=== PATIENT | female | born 1975 | race Caucasian/White ===

== ENCOUNTER → 2017-11-02 06:05 | Day surgery (SDC) | payer BC ==
[~2017-11-02 06:05] MED LIST: Acetaminophen IV 1GM/100ML * 100 ML ONE; Acetaminophen TAB* 325 MG PO ONE; Buffered Lidocaine 0.9% SYRIN* 5 ML/SYR SYRINGE INTRADERM ONE; Bupivacaine 0.25% SDV* 30 ML ONE; Dexamethasone IV* 4 MG/ML 1 ML (4 MG) ONE; Famotidine IV* 10 MG/ML 2 ML (20 mg) IV ONE; Famotidine IV* 10 MG/ML 2 ML (20 mg) ONE; HYDROmorphone INJ* 1 MG/ML CARPUJECT SYRINGE IV PRN; Ketorolac INJ* 30 MG/ML 1 ML VIAL ONE; Lidocaine 2% PF * 5 ML VIAL ONE; Metoclopramide IV* 5 MG/ML 2 ML VIAL IV SLOW PU ONE; Metoclopramide IV* 5 MG/ML 2 ML VIAL ONE; Midazolam* 1 MG/ML 2 ML VIAL (2 MG) ONE; Naloxone* 0.4 MG/ML 1 ML VIAL IV PRN; Ondansetron INJ* 2 MG/ML VIAL IV PRN; Ondansetron INJ* 2 MG/ML VIAL ONE; PROCHLORPERAZINE INJ 5 MG/ML 2 ML VIAL IV PRN; Propofol* 10 MG/ML 20 ML BTL IV PUSH ONE; Rocuronium* 10 MG/ML VIAL ONE; Sugammadex * 200 MG/2 ML VIAL IV PUSH ONE; ceFAZolin 2 GM PREMIX (*) 2 GM/50 ML BAG IVPB ONE; ceFAZolin 2 GM in NS 0.9% 100 ml IVPB ONE; diPHENhydraMINE IV* 50 MG/ML 1 ml VIAL (BENADRYL) IV PRN; fentaNYL* 50 MCG/ML 2 ML VIAL (100 MCG VIAL) IV PRN; fentaNYL* 50 MCG/ML 2 ML VIAL (100 MCG VIAL) ONE; oxyCODONE TAB* 5 MG TAB PO PRN; oxyCODONE/Acetamin 5/325 MG* TAB PO PRN
[2017-11-02 09:12] VITALS: BP 134/83
--- NOTE | 2017-11-02 15:01 | OP ---
CC: Dave Nichole MD; Dr. Zayra Cabrera OPERATIVE REPORT: DATE OF OPERATION: 11/02/17 DATE OF : 75 SURGEON: Dave Nichole MD OR SCRUB TECH: LOY Gómez ANESTHESIOLOGIST: Dr. Burns. ANESTHESIA: General anesthetic, local infiltration. PRE-OP DIAGNOSIS: Biliary colic. POST-OP DIAGNOSIS: Biliary colic. OPERATIVE PROCEDURE: Laparoscopic cholecystectomy. DESCRIPTION OF PROCEDURE: The patient was supine on the operative table. After adequate general ane sthetic, compression stockings, Catie Hugger warmer, and intravenous antibiotics, the abdomen was prep ped with antiseptic, draped in a sterile fashion. Local infiltrative anesthesia was carried out at a ll of the cannula sites. Right upper quadrant 5-mm incision was created and 5-mm port placed under d irect vision. Insufflation was carried out with carbon dioxide. Inspection revealed no evidence of underlying injury. Additional cannulae, 5-mm supraumbilical and right anterior axillary line as well as 12-mm subxiphoid were placed through small stab wounds under direct vision. Gallbladder was tente d up and areolar tissue was taken down at the cystic duct and cystic artery, which were readily skele tonized and identified. These were then clipped and divided. Gallbladder was taken off the liver bed with electrocautery. Hemostasis was good. The gallbladder was removed through the subxiphoid port w ithout any spillage. The operative field was again examined and hemostasis was good. The pneumoperi toneum was allowed to escape. The cannulae were removed and skin closed with 5-0 Vicryl followed by Steri-Strips. She tolerated the procedure well, was awakened and brought to Recovery in good conditi on. No complications. No drains. Pathologic specimen was gallbladder. Sponge and instrument count s correct. Estimated blood loss 20 mL. [id number]/[facility] #: [id number]
== END | disposition home or self-care (01) ==
LOC: OR 06:05
PROVIDERS: ATTEND Surgery
DX: K80.10 Calculus of gallbladder with chronic cholecystitis without obstruction (principal)
CPT/HCPCS: 88304; J0690; J1100; J1885; J2250; J2405; J2704; J2765; J3010

== ENCOUNTER 2018-05-31 10:16 | Day surgery (SDC) | payer BC ==
--- NOTE | 2018-05-31 10:50 | ED ---
Abdominal Pain/Female - HPI Summary HPI Summary: The pt is a 43 y/o female presenting to [facility] c/o RLQ pain since 2100 yesterday night worsened today morning. She was seen at [facility] with a dx of appendicitis. The abd pain rated 4/10 in severity is described as aching. She denies nausea. - History of Current Complaint Chief Complaint: EDAbdPain Stated Complaint: ABD PAIN/SENT BY [place] Time Seen by Provider: 05/31/18 10:24 Hx Obtained From: Patient Onset/Duration: Gradual Onset, Still Present, Worse Since - Today morning Timing: Constant Severity Currently: Moderate Pain Intensity: 6 Pain Scale Used: 0-10 Numeric Location: Discrete At: RLQ Allergies/Adverse Reactions: Allergies Allergy/AdvReac Type Severity Reaction Status Date / Time bee pollen Allergy Anaphylatic Verified 10/31/17 09:57 Shock Sulfa (Sulfonamide Allergy Swelling Verified 10/31/17 09:57 Antibiotics) Of Face,Lips,& Throat PMH/Surg Hx/FS Hx/Imm Hx Previously Healthy: No GI History: Reports: Other GI Disorders - chronic cholecystitis History: Reports: Other Problems/Disorders - occas UTI's in past Sensory History: Reports: Hx Contacts or Glasses - both, will wear glasses DOS Opthamlomology History: Reports: Hx Contacts or Glasses - both, will wear glasses DOS - Cancer History Cancer Type, Location and Year: None reported - Surgical History Surgery Procedure, Year, and Place: Tubal ligation 2008 [facility] Anesthesia Reactions: No Infectious Disease History: No Infectious Disease History: Denies: Traveled Outside the [place] in Last 30 Days - Family History Known Family History: Positive: Cardiac Disease, Hypertension, Diabetes - Social History Occupation: Employed Full-time Lives: With Family Alcohol Use: Weekly Alcohol Amount: reports 1-2 beers weekly Substance Use Type: Reports: None Smoking Status (MU): Never Smoked Tobacco Review of Systems Negative: Fever Positive: Abdominal Pain - RLQ. Negative: Nausea All Other Systems Reviewed And Are Negative: Yes Physical Exam - Summary Physical Exam Summary: Appearance: The patient is well-nourished in no acute distress and in no acute pain. Skin: The skin is warm and dry and skin color reflects adequate perfusion. HEENT: The head is normocephalic and atraumatic. The pupils are equal and reactive. The conjunctivae are clear and without drainage. Nares are patent and without drainage. Mouth reveals moist mucous membranes and the throat is without erythema and exudate. The external ears are intact. The ear canals are patent and without drainage. The tympanic membranes are intact. Neck: The neck is supple with full range of motion and non-tender. There are no carotid bruits. There is no neck vein distension. Respiratory: Chest is non-tender. Lungs are clear to auscultation and breath sounds are symmetrical and equal. Cardiovascular: Heart is regular rate and rhythm. There is no murmur or rub auscultated. There is no peripheral edema and pulses are symmetrical and equal. Abdomen: The abdomen is soft and tender to palpation in the RLQ There are normal bowel sounds heard in all four quadrants and there is no organomegaly palpated. Musculoskeletal: There is no back tenderness noted. Extremities are non-tender with full range of motion. There is good capillary refill. There is no peripheral edema or calf tenderness elicited. Neurological: Patient is alert and oriented to person, place and time. The patient has symmetrical motor strength in all four extremities. Cranial nerves are grossly intact. Deep tendon reflexes are symmetrical and equal in all four extremities. Psychiatric: The patient has an appropriate affect and does not exhibit any anxiety or depression. Triage Information Reviewed: Yes Vital Signs On Initial Exam: Initial Vitals Temp Pulse Resp BP Pulse Ox 98.2 F 90 16 146/80 98 05/31/18 10:17 05/31/18 10:17 05/31/18 10:17 05/31/18 10:17 05/31/18 10:17 Vital Signs Reviewed: Yes Diagnostics - Vital Signs Vital Signs Temp Pulse Resp BP Pulse Ox 05/31/18 10:17 98.2 F 90 16 146/80 98 - Laboratory Lab Statement: Any lab studies that have been ordered have been reviewed, and results considered in the medical decision making process. Abdominal Pain Fem Course/Dx - Course Course Of Treatment: Ms. Andrade was transferred over from [facility] with a diagnosis of acute appendicitis. She was stable on arrival, nontoxic in appearance and afebrile. Dr. French was contacted and came to the emergency department to evaluate her and admit her to the OR. - Diagnoses Provider Diagnoses: Acute appendicitis - Provider Notifications Discussed Care Of Patient With: Luis Carlos Obrien - Hand Sewer Instructed by Provider To: Will See In ED - 10:59- Dr. Obrien saw the pt in the ED Discharge - Sign-Out/Discharge Documenting (check all that apply): Patient Departure - Admit - Discharge Plan Condition: Stable Disposition: ADMITTED TO [facility] - Billing Disposition and Condition Condition: STABLE Disposition: Admitted to [facility] - Attestation Statements Document Initiated by Angelaibe: Yes Documenting Scribe: Alyx Russell Provider For Whom Radha is Documenting (Include Credential): Dr. Percy Roach MD Scribe Attestation: Alyx Cordero , scribed for Dr. Percy Roach MD on 05/31/18 at 1604. Scribe Documentation Reviewed: Yes Provider Attestation: The documentation as recorded by the Alyx nelson accurately reflects the service I personally performed and the decisions made by me, Dr. Percy Roach MD
[2018-05-31] MEDS ORDERED: Morphine INJ* 4 MG/ML 1 ML SYRINGE (NEW SYRINGE VERSION) IV PRN (11:09)
[2018-05-31] MEDS ORDERED: Ondansetron INJ* 2 MG/ML VIAL IV PRN (11:10)
[2018-05-31] MEDS ORDERED: NS 0.9% 1000 ML* 1,000 ML IV SCH (11:15)
[2018-05-31] MEDS ORDERED: Morphine INJ* 4 MG/ML 1 ML SYRINGE (NEW SYRINGE VERSION) ONE (11:21)
[2018-05-31] MEDS ORDERED: Bupivacaine 0.25% W/EPI* 10 ML SDV ONE ×2 (12:06→12:09)
[2018-05-31] MEDS ORDERED: Rocuronium* 10 MG/ML VIAL ONE (12:31)
[2018-05-31] MEDS ORDERED: fentaNYL* 50 MCG/ML 2 ML VIAL (100 MCG VIAL) ONE ×2 (12:31→13:21)
[2018-05-31] MEDS ORDERED: Midazolam* 1 MG/ML 5 ML VIAL (5 MG) ONE (12:31)
--- NOTE | 2018-05-31 12:44 | HP ---
CC: [facility]; Zayra Cabrera DO HISTORY AND PHYSICAL: DATE OF ADMISSION: 05/31/18 PRIMARY CARE PROVIDER: Zayra Cabrera DO at [facility]. CHIEF COMPLAINT: Right lower quadrant abdominal pain. HISTORY OF PRESENT ILLNESS: Ms. Emilee Andrade is a 43-year-old woman who is healthy otherwise and d eveloped some generalized periumbilical discomfort last night after eating pizza. This was associate d with some nausea and vomiting and loose bowel movements. The pain became quite persistent and she had difficulty sleeping and subsequently became localized more in the right lower quadrant of her abd omen. She presented to the emergency room out at [facility]. There she was noted to have a white bl ood cell count elevation of almost 20,000, but the remainder of her laboratory workup was unremarkabl e. She did undergo a CT scan of the abdomen and pelvis. I did review these images. This was done withou t oral contrast; however, there appears to be findings consistent with acute appendicitis with a dila liz thick walled appendix and periappendiceal inflammation. There is no evidence of extraluminal air , fluid or signs of perforation. There were no other acute findings. She was transferred here to [facility] for further surgical care. PAST MEDICAL HISTORY: Unremarkable. PAST SURGICAL HISTORY: 1. Laparoscopic cholecystectomy. 2. Tubal ligation, laparoscopic. MEDICATIONS: Include: 1. Ibuprofen. 2. Calcium carbonate/TUMS. ALLERGIES: BEE POLLEN and SULFA. SOCIAL HISTORY: She does not smoke. She drinks alcohol on a social basis. She is with [facility] [employer] [employer]. 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 REVIEW OF SYSTEMS: Cerebrovascular: No dizziness or visual disturbances. Cardiovascular: No chest pain or shortness of breath. Pulmonary: No wheezing or hemoptysis. GI: As per above. PHYSICAL EXAMINATION GENERAL: She is a well-developed, well-nourished female, who appears to be in no apparent distress a nd is quite alert and conversive. She is very pleasant. VITAL SIGNS: Temperature 98.2, pulse 90, blood pressure 146/80, oxygen saturation 98%. LUNGS: Clear to auscultation with normal respiratory effort. HEART: Regular rate and rhythm without murmurs, rubs or gallops. ABDOMEN: Soft and nondistended. She has laparoscopic incision in the upper abdomen from her previou s cholecystectomy as well as the suprapubic port site. There were no hernias noted. She had diminish ed bowel sounds throughout. She has tenderness with some guarding in the right lower quadrant. No h ernias were noted. EXTREMITIES: Show no cyanosis or edema. IMPRESSION: Acute appendicitis. No evidence of perforation or abscess formation and she has been s ymptomatic for about 12 hours. She does have a leukocytosis of 20,000. PLAN: Laparoscopic appendectomy today. I discussed the recommendations and procedure with her and h er in the emergency room. The procedure was discussed with her and the risks of, but not rawls ited to bleeding, infection, intraabdominal abscess formation, injury to peritoneal and retroperitone al structures, possibly even open procedure, possibility of further surgical intervention depending o n clinical findings, the risk of general anesthesia, deep vein thrombosis, and pulmonary embolism. Rhiannon thomas also discussed briefly probable discharge later today and postoperative recovery times and time off from work to be expected. We also discussed nonoperative management with IV antibiotics and although this is not recommended, rhiannon thomas discussed this. She would like to proceed with surgery. We will keep her n.p.o., start IV fluids, and she will receive preoperative antibiotics as well as an algesia. [id number]/[facility] #: [id number]
[2018-05-31] MEDS ORDERED: ceFOXitin 2 GM IVPREMIX* 2 GM/50 ML BAG ONE (12:51)
[2018-05-31] MEDS ORDERED: Naloxone* 0.4 MG/ML 1 ML VIAL IV PRN (12:55)
[2018-05-31] MEDS ORDERED: Acetaminophen IV 1GM/100ML * 1,000 MG/100 ML VIAL IVPB ONE (12:55)
[2018-05-31] MEDS ORDERED: HYDROmorphone INJ1* 1 MG/ML SYRINGE IV PRN (12:55)
[2018-05-31] MEDS ORDERED: DiMENhydriNATE IV* 50 MG/ML VIAL IV PUSH PRN (12:55)
[2018-05-31] MEDS ORDERED: DiMENhydriNATE IV* 50 MG/ML VIAL ONE (13:22)
[2018-05-31] MEDS ORDERED: Propofol* 10 MG/ML 20 ML BTL IV PUSH ONE (13:22)
[2018-05-31] MEDS ORDERED: Ketorolac INJ* 30 MG/ML 1 ML VIAL ONE (13:22)
[2018-05-31] MEDS ORDERED: Succinylcholine* 20 MG/ML 10 ML VIAL ONE (13:22)
[2018-05-31] MEDS ORDERED: Lidocaine 2% PF * 5 ML VIAL ONE (13:22)
[2018-05-31] MEDS ORDERED: Dexamethasone IV* 4 MG/ML 1 ML (4 MG) ONE (13:22)
[2018-05-31] MEDS ORDERED: Neostigmine Methylsulfate* 1 MG/ML 10 ML VIAL (1 mg/ml) ONE (13:48)
[2018-05-31] MEDS ORDERED: Ondansetron INJ* 2 MG/ML VIAL ONE (13:48)
[2018-05-31] MEDS ORDERED: Glycopyrrolate IV* 0.2 MG/ML 1 ML VIAL ONE (13:48)
[2018-05-31] MEDS ORDERED: Acetaminophen IV 1GM/100ML * 100 ML ONE (14:35)
[2018-05-31 15:32] VITALS: BP 129/85
--- NOTE | 2018-06-01 08:36 | OP ---
CC: Zayra Cabrera DO OPERATIVE REPORT: DATE OF OPERATION: 05/31/18 DATE OF : 75 SURGEON: Norberto Garcia MD POOL CLEANER: None. ANESTHESIOLOGIST: Inge Willis MD ANESTHESIA: General, endotracheal. PRE-OP DIAGNOSIS: Acute appendicitis. POST-OP DIAGNOSIS: Acute appendicitis. OPERATIVE PROCEDURE: Laparoscopic appendectomy. ESTIMATED BLOOD LOSS: 50 mL. IV FLUIDS: Lactated Ringers. SPECIMEN: Appendix. DRAINS: None. COMPLICATIONS: None. COUNTS: Instruments, needle, sponge counts correct. DESCRIPTION OF PROCEDURE: The patient was brought to the operating room and placed on table supine. Sequential compression devices were placed in both lower extremities. General anesthesia was administered. She was positioned and padded appropriately. She received appropriate intravenous antibiotics. After sterile prep and drape, time-out was performed. Local anesthetic was infiltrated into the skin and soft tissue prior to making each incision. Entry to the abdomen was through a transumbilical vertical incision using an open technique. After accessing the peritoneal cavity, carbon dioxide was insufflated to a pressure of 15 mmHg. Under direct visualization 5 mm trocars were placed in the suprapubic midline and also in the left lower quadrant. Inspection revealed the appendix in retrocecal position, adherent to the cecum with fibrinous changes consistent with a suppurative appendicitis. Appendix was elevated and a window created in the mesentery at the base. The appendix was divided with the EndoGIA stapler at its base with the null cartridge and the mesentry divided with the EndoGIA stapler with 2 dunbar cartridges. Appendix was placed in an endoscopic retrieval bag and retrieved through the umbilical site. Hemostasis was assured and irrigation was performed until clear. Wounds were closed using 0 Vicryl to approximate the umbilicus in a [id number]-vv-[id number] fashion. Skin incisions were closed with 4-0 Monocryl in subcuticular fashion. DermaFlex was applied to the wounds. The patient tolerated the procedure well , was extubated and transferred to Recovery in stable condition. [id number]/[facility] #: [id number] MTDD
== END 2018-05-31 15:34 | disposition home or self-care (01) ==
LOC: ED 10:16 → OR 11:20
PROVIDERS: ATTEND Surgery
DX: K35.80 Unspecified acute appendicitis (principal); R10.31 Right lower quadrant pain; R11.2 Nausea with vomiting, unspecified; R19.7 Diarrhea, unspecified
CPT/HCPCS: 81025; 88304; 96374; 99283; C1776; J0330; J0694; J1100; J1240; J1885; J2250; J2270; J2405; J2704; J2710; J3010